=== PATIENT | female | born 1980 | race American Indian/Alaskan Native ===

== ENCOUNTER 2017-08-28 08:46 | Outpatient (CLI) | payer MEDICARE ==
--- NOTE | 2017-08-28 12:50 | XRay Report ---
XRAY RIGHT HIP TWO VIEWS: 08/28/17 08:46:00 CLINICAL: Pain. FINDINGS: Both supine and standing views were obtained. Severe osteoarthritis with loss of the joint space, subchondral geodes of the femoral head and deformity of the femoral head. Increased density of the femoral head consistent with avascular necrosis. The cortical margin of the femoral head is irregular and consistent with chronic subchondral fracture. Superior acetabular eburnation and large osteophytes. No fracture or dislocation.Increased density of the left femoral head but normal femoral head contour. Moderate left superior acetabular eburnation. Mild narrowing of the left hip joint space. The pelvic bones are intact. No muscle tissues. 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 Severe osteoarthritis of the right hip and chronic subchondral fracture of the right femoral head.
== END 2017-08-28 08:47 | disposition home or self-care (01) ==
LOC: SPVIMAG 08:46
PROVIDERS: ATTEND Orthopaedic Surgery
DX: S72.8X1A Other fracture of right femur, initial encounter for closed fracture (principal); M16.11 Unilateral primary osteoarthritis, right hip; M87.9 Osteonecrosis, unspecified; X58.XXXA Exposure to other specified factors, initial encounter; Y93.89 Activity, other specified; Y92.89 Other specified places as the place of occurrence of the external cause; Y99.8 Other external cause status